=== PATIENT | female | born 1950 | race Caucasian/White ===

== ENCOUNTER → 2021-10-29 | Outpatient (CLI) | payer MEDICARE, BC ==
[~2021-10-29] MED LIST: CRESTOR10 MG PO; LISINOPRIL-HCT1 EACH PO; MOBIC15 MG PO; ROPINIROLE HCL0.5 MG PO; ULTRAM50 MG PO; VITAMIN B12 PO; VITAMIN D21250 MCG PO; WOMEN'S MULTI200 MCG PO
[2021-10-29 10:58] LABS: HEMOGLOBIN 11.7 gm/dl (12.3-15.3); RED BLOOD COUNT 3.94 M/UL (4.00-5.10); WHITE BLOOD COUNT 4.8 K/UL (4.5-11.0)
== END ==
LOC: EDSTATUS 10:00 → OPSV2 10:00
PROVIDERS: Orthopaedic Surgery
DX: Z01.818 Encounter for other preprocedural examination (principal); M17.12 Unilateral primary osteoarthritis, left knee
CPT/HCPCS: 80048; 85025; 93005

== ENCOUNTER → 2021-11-04 | Outpatient (CLI) | payer MEDICARE, BC ==
[~2021-11-04] MED LIST changes: +ASPIRIN EC81 MG PO; +CYCLOBENZAPRINE10 MG PO; +ENDOCET 7.5-321 EACH PO; +ZOFRAN 4 MG TAB4 MG PO
== END ==
LOC: ECHO 08:35
DX: R01.1 Cardiac murmur, unspecified (principal); I51.89 Other ill-defined heart diseases
CPT/HCPCS: ECHO; 93306

== ENCOUNTER → 2021-11-11 | Day surgery (SDC) | payer MEDICARE, BC ==
[~2021-11-11] VITALS: Ht 154.9 cm; Wt 67.1 kg
== END | disposition home or self-care (01) ==
LOC: OR 05:00 → EDSTATUS 07:30
PROVIDERS: Orthopaedic Surgery
DX: M17.0 Bilateral primary osteoarthritis of knee (principal); M25.762 Osteophyte, left knee; I10 Essential (primary) hypertension; E78.5 Hyperlipidemia, unspecified; Z20.822 Contact with and (suspected) exposure to COVID-19
CPT/HCPCS: 36415; 73560; 80048; 86850; 86900; 86901; 97161; 97165; C1776; J0690; J1100; J1885; J2001; J2370; J2405; J2704; J2795; J7030; J7120